=== PATIENT | male | born 1985 | race Caucasian/White ===

== ENCOUNTER 2020-07-02 14:30 | Emergency (ER) | payer OTHER ==
[2020-07-02 14:36] VITALS: TEMP 98.1
--- NOTE | 2020-07-02 15:11 | ED ---
General Adult HPI - General Chief complaint: Chest Pain Stated complaint: Chest pressure Time Seen by Provider: 07/02/20 14:58 Source: patient Mode of arrival: ambulatory - History of Present Illness Initial comments: Dictation was produced using [employer] dictation software. please excuse any grammatical, word or spelling errors. This patient was cared for during a federal and state declared state of emergency secondary to Covid 19 Chief Complaint: 34-year-old male presents with chest pain History of Present Illness: Is 4-year-old male past medical history of hypertension. He states that today he has been having chest pain for the last 48-72 hours. States that it's a discomfort, not exactly pain to his right substernal area. He notices that when he burps he has this sensation. Call his primary care physician recently and was told to take Pepcid make a follow-up appointment. He states that today he had another episode and took some Pepcid however his symptoms and go away. Denies any radiation to the shoulder joint or extremity. No associated diaphoresis. He does not feeling nausea as well. Patient denies any strong family history of cardiac disease. He does not use tobacco. He has remote history 10 years ago where he used to be a pack-a-day smoker. He exercises regularly and is very active. He denies any exacerbation of his symptoms with exertional activity. He has history of cholecystectomy. No fevers or cough. Patient's pain is nonpleuritic. The ROS documented in this emergency department record has been reviewed and c onfirmed by me. Those systems with pertinent positive or negative responses have been documented in the HPI. All other systems are other negative and/or noncontributory. PHYSICAL EXAM: General Impression: Alert and oriented x3, not in acute distress HEENT: Normocephalic atraumatic, extra-ocular movements intact, pupils equal and reactive to light bilaterally, mucous membranes moist. Cardiovascular: Heart regular rate and rhythm, no murmurs Chest: Able to complete full sentences, no retractions, no tachypnea, clear to auscultation bilaterally Abdomen: abdomen soft, non-tender, non-distended, no organomegaly Musculoskeletal: Pulses present and equal in all extremities, no peripheral edema Motor: no focal deficits noted Neurological: CN II-XII grossly intact, no focal motor or sensory deficits noted Skin: Intact with no visualized rashes Psych: Normal affect and mood ED course: 34-year-old male with atypical chest pain. Vital signs upon arrival are within acceptable limits. Laboratory evaluation obtained. CBC unremarkable. Metabolic panel is negative. Cardiac enzymes negative. Chest x-rays unremarkable. Disposition options were discussed with patient. He is recommended to him that we draw a second troponin to increase her confidence that patient is not under going in acute coronary process. Patient insisted one to be discharge and he will follow-up with his private care physician. This point it was recommended to patient to stop drinking beer, burr picker some antacid medications and to follow-up with his primary care physician. Return parameters were discussed. Patient was told to seek medical attention if she develops any chest pain. This point there are no identified high-risk features. He is told to follow-up with his PCP. Patient given aspirin. EKG interpretation: Ventricular rate 64, normal sinus rhythm,. Interval 174, QRS 92, QTC 408. No GA prolongation, no QTC prolongation,. Isolated T-wave inversion in lead 3. Possible 1 hyperacute T wave in V2 Overall, this EKG is nonspecific - Related Data Home Medications Medication Instructions Recorded Confirmed Omeprazole [PriLOSEC] 1 tab PO DAILY 02/21/16 06/14/16 lisinopriL [Zestril] 1 tab PO DAILY 02/21/16 06/14/16 Allergies Allergy/AdvReac Type Severity Reaction Status Date / Time No Known Allergies Allergy Verified 07/02/20 14:37 Review of Systems ROS Statement: Those systems with pertinent positive or pertinent negative responses have been documented in the HPI. ROS Other: All systems not noted in ROS Statement are negative. Past Medical History Past Medical History: Hypertension History of Any Multi-Drug Resistant Organisms: None Reported Past Surgical History: Cholecystectomy Additional Past Surgical History / Comment(s): Sinus Past Psychological History: No Psychological Hx Reported Smoking Status: Former smoker Past Alcohol Use History: Daily Past Drug Use History: None Reported Course Vital Signs 07/02/20 07/02/20 14:34 15:36 Temperature 98.1 F Pulse Rate 76 64 Respiratory 16 18 Rate Blood Pressure 137/86 128/89 O2 Sat by Pulse 99 99 Oximetry Medical Decision Making - Lab Data Result diagrams: 07/02/20 15:23 07/02/20 15:23 Lab Results 07/02/20 07/02/20 07/02/20 Range/Units 15:23 15:23 15:23 WBC 9.4 (3.8-10.6) k/uL RBC 5.25 (4.30-5.90) m/uL Hgb 16.2 (13.0-17.5) gm/dL Hct 48.2 (39.0-53.0) % MCV 91.9 (80.0-100.0) fL MCH 30.9 (25.0-35.0) pg MCHC 33.6 (31.0-37.0) g/dL RDW 12.4 (11.5-15.5) % Plt Count 159 (150-450) k/uL Neutrophils % 63 % Lymphocytes % 25 % Monocytes % 6 % Eosinophils % 3 % Basophils % 1 % Neutrophils # 6.0 (1.3-7.7) k/uL Lymphocytes # 2.3 (1.0-4.8) k/uL Monocytes # 0.5 (0-1.0) k/uL Eosinophils # 0.3 (0-0.7) k/uL Basophils # 0.1 (0-0.2) k/uL Sodium 139 (137-145) mmol/L Potassium 4.4 (3.5-5.1) mmol/L Chloride 105 (98-107) mmol/L Carbon Dioxide 24 (22-30) mmol/L Anion Gap 10 mmol/L BUN 19 (9-20) mg/dL Creatinine 0.93 (0.66-1.25) mg/dL Est GFR (CKD-EPI)AfAm >90 (>60 ml/min/1.73 sqM) Est GFR (CKD-EPI)NonAf >90 (>60 ml/min/1.73 sqM) Glucose 91 (74-99) mg/dL Calcium 9.9 (8.4-10.2) mg/dL Total Bilirubin 0.5 (0.2-1.3) mg/dL AST 33 (17-59) U/L ALT 23 (4-49) U/L Alkaline Phosphatase 71 (38-126) U/L Troponin I <0.012 (0.000-0.034) ng/mL Total Protein 7.6 (6.3-8.2) g/dL Albumin 4.8 (3.5-5.0) g/dL Lipase 83 (23-300) U/L Disposition Clinical Impression: Chest pain Disposition: HOME SELF-CARE Condition: Fair Instructions (If sedation given, give patient instructions): Chest Pain (ED) Is patient prescribed a controlled substance at d/c from ED?: No Referrals: Jac Mejía MD [Primary Care Provider] - 1-2 days Time of Disposition: 16:22
[2020-07-02 15:34] LABS: Basophils # (A) 0.1 k/uL (0-0.2); Basophils % (A) 1 %; Eosinophils # (A) 0.3 k/uL (0-0.7); Eosinophils % (A) 3 %; HCT 48.2 % (39.0-53.0); HGB 16.2 gm/dL (13.0-17.5); Lymphocytes # (A) 2.3 k/uL (1.0-4.8); Lymphocytes % (A) 25 %; MCH 30.9 pg (25.0-35.0); MCHC 33.6 g/dL (31.0-37.0); MCV 91.9 fL (80.0-100.0); Mean Platelet Volume 9.7; Monocytes # (A) 0.5 k/uL (0-1.0); Monocytes % (A) 6 %; Neutrophils % (A) 63 %; Platelet Count 159 k/uL (150-450); RBC 5.25 m/uL (4.30-5.90); RDW 12.4 % (11.5-15.5); WBC 9.4 k/uL (3.8-10.6)
[2020-07-02 15:42] LABS: ALT 23 U/L (4-49); AST 33 U/L (17-59); African American GFR (CKD) >90 (>60 ml/min/1.73 sqM); Albumin 4.8 g/dL (3.5-5.0); Alkaline Phosphatase 71 U/L (38-126); Anion Gap 10 mmol/L; Blood Urea Nitrogen 19 mg/dL (9-20); Calcium 9.9 mg/dL (8.4-10.2); Carbon Dioxide 24 mmol/L (22-30); Chloride 105 mmol/L (98-107); Glucose 91 mg/dL (74-99); Lipase 83 U/L (23-300); Non-African American GFR(CKD) >90 (>60 ml/min/1.73 sqM); Potassium 4.4 mmol/L (3.5-5.1); Sodium 139 mmol/L (137-145); Total Bilirubin 0.5 mg/dL (0.2-1.3); Total Protein 7.6 g/dL (6.3-8.2)
--- NOTE | 2020-07-02 15:44 | XR ---
EXAMINATION TYPE: XR chest 2V DATE OF EXAM: 07/02/2020 COMPARISON: NONE HISTORY: Chest pain and discomfort TECHNIQUE: Frontal and lateral views of the chest are obtained. FINDINGS: There is no focal air space opacity, pleural effusion, or pneumothorax seen. The cardiac silhouette size is within normal limits. The osseous structures are intact. IMPRESSION: No acute cardiopulmonary process.
[2020-07-02 16:04] VITALS: RESP 18
[2020-07-02] MEDS ORDERED: ASPIRIN 81 MG PO STA (16:21)
[2020-07-02 16:35] VITALS: BP 128/84; PULSE 75
== END 2020-07-02 16:40 | disposition home or self-care (01) ==
LOC: EC 14:30
DX: R07.89 Other chest pain (principal); I10 Essential (primary) hypertension; Z79.899 Other long term (current) drug therapy; Z90.49 Acquired absence of other specified parts of digestive tract; Z87.891 Personal history of nicotine dependence
CPT/HCPCS: 36415; 71046; 80053; 83690; 84484; 85025; 93005; 99285

== ENCOUNTER 2021-10-03 23:25 | Emergency (ER) | payer OTHER ==
[2021-10-03 23:37] VITALS: RESP 18; TEMP 98.3
[2021-10-03] MEDS ORDERED: SODIUM CHLORIDE 0.9% 1,000 ML IV STA (23:58)
[2021-10-03] MEDS ORDERED: ONDANSETRON 4 MG/2 ML VIAL IVP STA (23:58)
[2021-10-03] MEDS ORDERED: MORPHINE SULFATE 4 MG/ML SYRINGE IV STA (23:58)
--- NOTE | 2021-10-04 00:06 | ED ---
Abdominal Pain HPI - General Chief Complaint: Abdominal Pain Stated Complaint: Abdominal Pain Time Seen by Provider: 10/03/21 23:46 Source: patient Mode of arrival: ambulatory - History of Present Illness Initial Comments: 36 year-old male patient presents to the emergency department for evaluation of generalized abdominal pain. States the pain waxes and wanes over minutes. He has had many episodes of vomiting over the course of the day and last night. States that the pain started yesterday but was much more mild. He was evaluated at [facility] yesterday for significant scrotal swelling. States that he woke with swelling in the morning yesterday and was advised to go to the hospital. He did have labs, CT abdomen and pelvis, as well as scrotal ultrasound. He was ultimately diagnosed with scrotal hematoma and discharged home. His abdominal pain worsened today so he came in for evaluation. He has been unable to keep down any food or fluids. Denies any fever or chills. Denies any hematuria, dysuria, urinary frequency, urinary urgency. States he did have a bowel movement this morning. States he has not really been passing gas this evening. Has not taken any medication for his pain. He is a daily drinker. Denies any street drug use. Patient denies any recent rash, cough, shortness of breath, chest pain, back pain, numbness, tingling, dizziness, weakness, headache, visual changes, or any other complaints. - Related Data Home Medications Medication Instructions Recorded Confirmed lisinopriL [Zestril] 10 mg PO DAILY 02/21/16 07/02/20 Ascorbic Acid [Vitamin C] 500 mg PO DAILY 07/02/20 07/02/20 Cholecalciferol [Vitamin D3 (25 1,000 unit PO DAILY 07/02/20 07/02/20 Mcg = 1000 Iu)] Famotidine [Pepcid AC] 10 mg PO DAILY PRN 07/02/20 07/02/20 Previous Rx's Medication Instructions Recorded Dicyclomine [Bentyl] 20 mg PO QID #12 tablet 10/04/21 Omeprazole 20 mg PO DAILY #30 tab 10/04/21 Allergies Allergy/AdvReac Type Severity Reaction Status Date / Time soap AdvReac Rash/Hives Verified 10/03/21 23:37 Review of Systems ROS Statement: Those systems with pertinent positive or pertinent negative responses have been documented in the HPI. ROS Other: All systems not noted in ROS Statement are negative. Past Medical History Past Medical History: Hypertension History of Any Multi-Drug Resistant Organisms: None Reported Past Surgical History: Cholecystectomy Additional Past Surgical History / Comment(s): Sinus Past Psychological History: No Psychological Hx Reported Smoking Status: Former smoker Past Alcohol Use History: Daily Past Drug Use History: None Reported General Exam General appearance: alert, in no apparent distress, other (This is a well- developed, well-nourished adult male in no acute distress.) Eye exam: Present: normal appearance, PERRL, EOMI. Absent: scleral icterus, conjunctival injection, periorbital swelling ENT exam: Present: normal exam, normal oropharynx, mucous membranes moist Respiratory exam: Present: normal lung sounds bilaterally. Absent: respiratory distress, wheezes, rales, rhonchi, stridor Cardiovascular Exam: Present: regular rate, normal rhythm, normal heart sounds. Absent: systolic murmur, diastolic murmur, rubs, gallop, clicks GI/Abdominal exam: Present: soft, tenderness (Periumbilical), normal bowel sounds. Absent: distended, guarding, rebound, rigid Neurological exam: Present: alert, oriented X3, CN II-XII intact Psychiatric exam: Present: normal affect, normal mood Skin exam: Present: warm, dry, intact, normal color. Absent: rash Course Vital Signs 10/03/21 10/04/21 23:29 01:37 Temperature 98.3 F Pulse Rate 79 87 Respiratory 18 18 Rate Blood Pressure 138/86 118/74 O2 Sat by Pulse 97 97 Oximetry Medical Decision Making - Medical Decision Making 36-year-old male patient presented to the emergency department today for evalu ation of waxing waning abdominal pain with vomiting and diarrhea. Physical examination did reveal soft nontender abdomen. He is afebrile normal vital signs. Labs reviewed and did reveal elevated white blood cell count of 14 felt to be reactive from vomiting. Did review records from [facility] visit yesterday showed evidence for enteritis and duodenitis. I did discuss these findings with the patient. He'll be given Bentyl prescription. He is feeling better after receiving IV fluids and medication here in the ER. We discharged follow up with his primary care physician for recheck in 1-2 days. Return parameters were discussed in detail. He verbalizes understanding and agrees with this plan. My attending is Dr. Bustamante. - Lab Data Result diagrams: 10/04/21 00:12 10/04/21 00:12 Lab Results 10/04/21 10/04/21 10/04/21 Range/Units 00:12 00:12 00:12 WBC 14.0 H (3.8-10.6) k/uL RBC 5.46 (4.30-5.90) m/uL Hgb 17.0 (13.0-17.5) gm/dL Hct 51.7 (39.0-53.0) % MCV 94.8 (80.0-100.0) fL MCH 31.2 (25.0-35.0) pg MCHC 32.9 (31.0-37.0) g/dL RDW 12.6 (11.5-15.5) % Plt Count 161 (150-450) k/uL MPV 11.5 Neutrophils % 88 % Lymphocytes % 7 % Monocytes % 4 % Eosinophils % 1 % Basophils % 0 % Neutrophils # 12.3 H (1.3-7.7) k/uL Lymphocytes # 1.0 (1.0-4.8) k/uL Monocytes # 0.5 (0-1.0) k/uL Eosinophils # 0.1 (0-0.7) k/uL Basophils # 0.0 (0-0.2) k/uL Sodium 135 L (137-145) mmol/L Potassium 4.3 (3.5-5.1) mmol/L Chloride 103 (98-107) mmol/L Carbon Dioxide 19 L (22-30) mmol/L Anion Gap 13 mmol/L BUN 11 (9-20) mg/dL Creatinine 0.77 (0.66-1.25) mg/dL Est GFR (CKD-EPI)AfAm >90 (>60 ml/min/1.73 sqM) Est GFR (CKD-EPI)NonAf >90 (>60 ml/min/1.73 sqM) Glucose 134 H (74-99) mg/dL Plasma Lactic Acid Glenn 0.8 (0.7-2.0) mmol/L Calcium 9.8 (8.4-10.2) mg/dL Total Bilirubin 0.8 (0.2-1.3) mg/dL AST 36 (17-59) U/L ALT 48 (4-49) U/L Alkaline Phosphatase 71 (38-126) U/L Total Protein 6.8 (6.3-8.2) g/dL Albumin 4.3 (3.5-5.0) g/dL Lipase 39 (23-300) U/L Disposition Clinical Impression: Abdominal pain, Vomiting Disposition: HOME SELF-CARE Condition: Good Instructions (If sedation given, give patient instructions): Acute Nausea and Vomiting (ED), Acute Diarrhea (ED), Abdominal Pain (ED) Additional Instructions: Take medications as directed. Follow up with primary care physician for recheck in 1-2 days. Return for any new, worsening, or concerning symptoms. Prescriptions: Dicyclomine [Bentyl] 20 mg PO QID #12 tablet Omeprazole 20 mg PO DAILY #30 tab Is patient prescribed a controlled substance at d/c from ED?: No Referrals: Jac Mejía MD [Primary Care Provider] - 1-2 days Time of Disposition: 01:21
[2021-10-04 00:29] LABS: Basophils % (A) 0 %; Eosinophils # (A) 0.1 k/uL (0-0.7); Eosinophils % (A) 1 %; HCT 51.7 % (39.0-53.0); Lymphocytes % (A) 7 %; MCH 31.2 pg (25.0-35.0); MCHC 32.9 g/dL (31.0-37.0); MCV 94.8 fL (80.0-100.0); Mean Platelet Volume 11.5; Monocytes # (A) 0.5 k/uL (0-1.0); Monocytes % (A) 4 %; Neutrophils # (A) 12.3 k/uL (1.3-7.7); Neutrophils % (A) 88 %; Platelet Count 161 k/uL (150-450); RBC 5.46 m/uL (4.30-5.90); RDW 12.6 % (11.5-15.5)
[2021-10-04 00:37] LABS: ALT 48 U/L (4-49); AST 36 U/L (17-59); African American GFR (CKD) >90 (>60 ml/min/1.73 sqM); Albumin 4.3 g/dL (3.5-5.0); Alkaline Phosphatase 71 U/L (38-126); Anion Gap 13 mmol/L; Blood Urea Nitrogen 11 mg/dL (9-20); Calcium 9.8 mg/dL (8.4-10.2); Carbon Dioxide 19 mmol/L (22-30); Chloride 103 mmol/L (98-107); Glucose 134 mg/dL (74-99); Lipase 39 U/L (23-300); Non-African American GFR(CKD) >90 (>60 ml/min/1.73 sqM); Potassium 4.3 mmol/L (3.5-5.1); Sodium 135 mmol/L (137-145); Total Bilirubin 0.8 mg/dL (0.2-1.3); Total Protein 6.8 g/dL (6.3-8.2)
[2021-10-04] MEDS ORDERED: DICYCLOMINE 10 MG/ML 2 ML AMP IM STA (01:21)
[2021-10-04 01:38] VITALS: BP 118/74; PULSE 87
== END 2021-10-04 01:37 | disposition home or self-care (01) ==
LOC: EC 23:25
DX: R10.84 Generalized abdominal pain (principal); R11.10 Vomiting, unspecified; I10 Essential (primary) hypertension; Z90.49 Acquired absence of other specified parts of digestive tract; Z87.891 Personal history of nicotine dependence
CPT/HCPCS: 36415; 80053; 83605; 83690; 85025; 96361; 96372; 96374; 96375; 99284

== ENCOUNTER 2021-10-07 22:41 | Emergency (ER) | payer OTHER ==
[2021-10-07 22:46] VITALS: TEMP 97.5
[2021-10-07] MEDS ORDERED: diphenhydrAMINE 50 MG/ML 1 ML VIAL IVP STA (23:04)
[2021-10-07] MEDS ORDERED: FAMOTIDINE 20 MG/2 ML VIAL IV STA (23:04)
[2021-10-07] MEDS ORDERED: methylPREDNISolone SOD SUCCI 125 MG/2 ML VIAL IV STA (23:04)
--- NOTE | 2021-10-07 23:46 | ED ---
Allergic Reaction HPI - General Chief complaint: Allergic Reaction Stated complaint: Facial swelling Time Seen by Provider: 10/07/21 22:58 Source: patient Mode of arrival: ambulatory Limitations: no limitations - History of Present Illness MD Complaint: facial swelling Onset/Timin -: hour(s) Exposure: unknown Symptoms: lip swelling Severity: severe Treatment Prior to Arrival: none Previous Allergy History: none - Related Data Home Medications Medication Instructions Recorded Confirmed lisinopriL [Zestril] 10 mg PO DAILY 02/21/16 07/02/20 Ascorbic Acid [Vitamin C] 500 mg PO DAILY 07/02/20 07/02/20 Cholecalciferol [Vitamin D3 (25 1,000 unit PO DAILY 07/02/20 07/02/20 Mcg = 1000 Iu)] Famotidine [Pepcid AC] 10 mg PO DAILY PRN 07/02/20 07/02/20 Previous Rx's Medication Instructions Recorded Dicyclomine [Bentyl] 20 mg PO QID #12 tablet 10/04/21 Omeprazole 20 mg PO DAILY #30 tab 10/04/21 Allergies Allergy/AdvReac Type Severity Reaction Status Date / Time soap AdvReac Rash/Hives Verified 10/07/21 22:42 Review of Systems ROS Statement: Those systems with pertinent positive or pertinent negative responses have been documented in the HPI. ROS Other: All systems not noted in ROS Statement are negative. Constitutional: Denies: fever, chills Eyes: Denies: eye pain, eye discharge ENT: Denies: throat pain, congestion Respiratory: Denies: cough, dyspnea Cardiovascular: Denies: chest pain, palpitations, edema Gastrointestinal: Denies: abdominal pain, nausea, vomiting, diarrhea Skin: Denies: rash Neurological: Denies: headache, weakness Past Medical History Past Medical History: Hypertension History of Any Multi-Drug Resistant Organisms: None Reported Past Surgical History: Cholecystectomy Additional Past Surgical History / Comment(s): Sinus Past Psychological History: Anxiety Smoking Status: Former smoker Past Alcohol Use History: Daily Past Drug Use History: None Reported General Exam - General Exam Comments Initial Comments: This patient is a 37-year-old man with history of hypertension, taking lisinopril, who presents with approximately one hour of swelling of his lower lip. The patient denies trauma or any history of previous ALLERGY/angioedema. He is denying any difficulty in breathing or swallowing. No tongue or neck swelling. Limitations: no limitations General appearance: alert, in no apparent distress Head exam: Present: atraumatic, normocephalic Eye exam: Present: normal appearance. Absent: scleral icterus, conjunctival injection ENT exam: Present: other (Is moderately severe angioedema involving the bilateral lower lip) Neck exam: Present: normal inspection, full ROM. Absent: tenderness, meningismus, lymphadenopathy Respiratory exam: Present: normal lung sounds bilaterally. Absent: respiratory distress, wheezes, rales, rhonchi, stridor Cardiovascular Exam: Present: regular rate, normal rhythm, normal heart sounds. Absent: systolic murmur, diastolic murmur, rubs, gallop GI/Abdominal exam: Present: soft. Absent: distended, tenderness, guarding, rebound, rigid, mass Extremities exam: Present: normal inspection, normal capillary refill. Absent: pedal edema, calf tenderness Neurological exam: Present: alert Skin exam: Present: warm, dry, intact, normal color. Absent: rash Course Vital Signs 10/07/21 22:42 Temperature 97.5 F L Pulse Rate 77 Respiratory 20 Rate Blood Pressure 132/92 O2 Sat by Pulse 97 Oximetry Disposition Clinical Impression: Angioedema Disposition: HOME SELF-CARE Condition: Good Instructions (If sedation given, give patient instructions): Angioedema (ED) Is patient prescribed a controlled substance at d/c from ED?: No Referrals: Jac Mejía MD [Primary Care Provider] - 1-2 days
[2021-10-08 00:53] VITALS: BP 125/76; PULSE 78; RESP 16
== END 2021-10-08 00:52 | disposition home or self-care (01) ==
LOC: EC 22:41
DX: T78.3XXA Angioneurotic edema, initial encounter (principal); I10 Essential (primary) hypertension; F41.9 Anxiety disorder, unspecified; Z90.49 Acquired absence of other specified parts of digestive tract; Z87.891 Personal history of nicotine dependence
CPT/HCPCS: 99283; 96374; 96375 ×2; J1200; J2930

== ENCOUNTER 2021-10-13 00:18 | Emergency (ER) | payer OTHER ==
[2021-10-13 00:24] VITALS: TEMP 98.1
[2021-10-13] MEDS ORDERED: methylPREDNISolone SOD SUCCI 125 MG/2 ML VIAL IV STA (00:53)
[2021-10-13] MEDS ORDERED: FAMOTIDINE 20 MG/2 ML VIAL IV STA (00:53)
[2021-10-13] MEDS ORDERED: diphenhydrAMINE 50 MG/ML 1 ML VIAL IVP STA (00:53)
[2021-10-13 01:07] LABS: Basophils % (A) 0 %; Eosinophils # (A) 0.4 k/uL (0-0.7); Eosinophils % (A) 4 %; HCT 46.2 % (39.0-53.0); HGB 15.4 gm/dL (13.0-17.5); Lymphocytes # (A) 2.2 k/uL (1.0-4.8); Lymphocytes % (A) 22 %; MCH 31.2 pg (25.0-35.0); MCHC 33.3 g/dL (31.0-37.0); MCV 93.8 fL (80.0-100.0); Mean Platelet Volume 10.3; Monocytes # (A) 0.4 k/uL (0-1.0); Monocytes % (A) 4 %; Neutrophils # (A) 6.7 k/uL (1.3-7.7); Neutrophils % (A) 69 %; Platelet Count 165 k/uL (150-450); RBC 4.92 m/uL (4.30-5.90); RDW 12.4 % (11.5-15.5); WBC 9.7 k/uL (3.8-10.6)
[2021-10-13 01:20] LABS: ALT 25 U/L (4-49); AST 29 U/L (17-59); African American GFR (CKD) >90 (>60 ml/min/1.73 sqM); Albumin 4.1 g/dL (3.5-5.0); Alkaline Phosphatase 66 U/L (38-126); Anion Gap 9 mmol/L; Blood Urea Nitrogen 10 mg/dL (9-20); Calcium 9.7 mg/dL (8.4-10.2); Carbon Dioxide 24 mmol/L (22-30); Chloride 102 mmol/L (98-107); Glucose 93 mg/dL (74-99); Non-African American GFR(CKD) >90 (>60 ml/min/1.73 sqM); Sodium 135 mmol/L (137-145); Total Bilirubin 0.8 mg/dL (0.2-1.3); Total Protein 6.5 g/dL (6.3-8.2)
--- NOTE | 2021-10-13 02:09 | ED ---
Allergic Reaction HPI - General Chief complaint: Allergic Reaction Stated complaint: Eye Problems Time Seen by Provider: 10/13/21 00:21 Source: patient Mode of arrival: ambulatory Limitations: no limitations - History of Present Illness MD Complaint: facial swelling -: hour(s) Exposure: unknown Symptoms: rash, facial swelling Severity: moderate Treatment Prior to Arrival: none Previous Allergy History: prior ED visit(s), angioedema - Related Data Home Medications Medication Instructions Recorded Confirmed lisinopriL [Zestril] 10 mg PO DAILY 02/21/16 07/02/20 Ascorbic Acid [Vitamin C] 500 mg PO DAILY 07/02/20 07/02/20 Cholecalciferol [Vitamin D3 (25 1,000 unit PO DAILY 07/02/20 07/02/20 Mcg = 1000 Iu)] Famotidine [Pepcid AC] 10 mg PO DAILY PRN 07/02/20 07/02/20 Previous Rx's Medication Instructions Recorded Dicyclomine [Bentyl] 20 mg PO QID #12 tablet 10/04/21 Omeprazole 20 mg PO DAILY #30 tab 10/04/21 Allergies Allergy/AdvReac Type Severity Reaction Status Date / Time soap AdvReac Rash/Hives Verified 10/13/21 00:23 Review of Systems ROS Statement: Those systems with pertinent positive or pertinent negative responses have been documented in the HPI. ROS Other: All systems not noted in ROS Statement are negative. Constitutional: Denies: fever, chills Eyes: Denies: eye pain, vision change ENT: Denies: throat pain, congestion Respiratory: Denies: cough, dyspnea, wheezes, stridor Cardiovascular: Denies: chest pain, palpitations, edema, syncope Gastrointestinal: Denies: abdominal pain, nausea, vomiting, diarrhea Skin: Reports: rash Neurological: Denies: headache Past Medical History Past Medical History: Hypertension History of Any Multi-Drug Resistant Organisms: None Reported Past Surgical History: Cholecystectomy Additional Past Surgical History / Comment(s): Sinus Past Psychological History: Anxiety Smoking Status: Former smoker Past Alcohol Use History: Daily Past Drug Use History: None Reported General Exam Limitations: no limitations General appearance: alert, in no apparent distress Head exam: Present: atraumatic, normocephalic Eye exam: Present: PERRL, EOMI, periorbital swelling. Absent: scleral icterus, conjunctival injection, nystagmus ENT exam: Present: normal oropharynx, mucous membranes moist Neck exam: Present: normal inspection Respiratory exam: Present: normal lung sounds bilaterally. Absent: respiratory distress, wheezes, rales, rhonchi, stridor Cardiovascular Exam: Present: regular rate, normal rhythm, normal heart sounds. Absent: systolic murmur, diastolic murmur, rubs, gallop GI/Abdominal exam: Present: soft. Absent: distended, tenderness, guarding, rebound, rigid, mass Back exam: Present: normal inspection Neurological exam: Present: alert Skin exam: Present: warm, dry, intact, other (Patient has a small number of flesh colored papular lesions with small amount of scaling that are suggestive of pityriasis, however there does not appear to be a herald patch. These are scattered but mainly on the right upper extremity and the trunk.) Course Vital Signs 10/13/21 10/13/21 00:21 00:30 Temperature 98.1 F Pulse Rate 80 Respiratory 18 16 Rate Blood Pressure 150/94 O2 Sat by Pulse 97 Oximetry Medical Decision Making - Lab Data Result diagrams: 10/13/21 00:37 10/13/21 00:37 Lab Results 10/13/21 10/13/21 Range/Units 00:37 00:37 WBC 9.7 (3.8-10.6) k/uL RBC 4.92 (4.30-5.90) m/uL Hgb 15.4 (13.0-17.5) gm/dL Hct 46.2 (39.0-53.0) % MCV 93.8 (80.0-100.0) fL MCH 31.2 (25.0-35.0) pg MCHC 33.3 (31.0-37.0) g/dL RDW 12.4 (11.5-15.5) % Plt Count 165 (150-450) k/uL MPV 10.3 Neutrophils % 69 % Lymphocytes % 22 % Monocytes % 4 % Eosinophils % 4 % Basophils % 0 % Neutrophils # 6.7 (1.3-7.7) k/uL Lymphocytes # 2.2 (1.0-4.8) k/uL Monocytes # 0.4 (0-1.0) k/uL Eosinophils # 0.4 (0-0.7) k/uL Basophils # 0.0 (0-0.2) k/uL Manual Slide Review Performed Sodium 135 L (137-145) mmol/L Potassium 4.0 (3.5-5.1) mmol/L Chloride 102 (98-107) mmol/L Carbon Dioxide 24 (22-30) mmol/L Anion Gap 9 mmol/L BUN 10 (9-20) mg/dL Creatinine 0.74 (0.66-1.25) mg/dL Est GFR (CKD-EPI)AfAm >90 (>60 ml/min/1.73 sqM) Est GFR (CKD-EPI)NonAf >90 (>60 ml/min/1.73 sqM) Glucose 93 (74-99) mg/dL Calcium 9.7 (8.4-10.2) mg/dL Total Bilirubin 0.8 (0.2-1.3) mg/dL AST 29 (17-59) U/L ALT 25 (4-49) U/L Alkaline Phosphatase 66 (38-126) U/L Total Protein 6.5 (6.3-8.2) g/dL Albumin 4.1 (3.5-5.0) g/dL Disposition Clinical Impression: Angioedema Disposition: HOME SELF-CARE Condition: Good Instructions (If sedation given, give patient instructions): Angioedema (ED) Is patient prescribed a controlled substance at d/c from ED?: No Referrals: Jac Mejía MD [Primary Care Provider] - 1-2 days Yonatan Ren MD [STAFF PHYSICIAN] - 1-2 days Kevin Sood MD [STAFF PHYSICIAN] - 1-2 days
[2021-10-13 02:36] VITALS: BP 126/80; PULSE 74; RESP 19
== END 2021-10-13 02:31 | disposition home or self-care (01) ==
LOC: EC 00:18
DX: T78.3XXA Angioneurotic edema, initial encounter (principal); I10 Essential (primary) hypertension; F41.9 Anxiety disorder, unspecified; Z90.49 Acquired absence of other specified parts of digestive tract; Z87.891 Personal history of nicotine dependence; Z20.822 Contact with and (suspected) exposure to COVID-19
CPT/HCPCS: 99283; 96374; 96375 ×2; 36415; 86160 ×2; 80053; 85025; 87635; J1200; J2930

== ENCOUNTER 2021-10-29 09:16 | Observation (INO) | payer OTHER ==
[2021-10-29] MEDS ORDERED: FAMOTIDINE 20 MG/2 ML VIAL IV STA (09:18)
[2021-10-29] MEDS ORDERED: methylPREDNISolone SOD SUCCI 125 MG/2 ML VIAL IV STA (09:18)
--- NOTE | 2021-10-29 09:36 | ED ---
Allergic Reaction HPI - General Chief complaint: Allergic Reaction Stated complaint: Allergic reaction Source: patient Mode of arrival: ambulatory Limitations: no limitations - History of Present Illness Initial Comments: 36-year-old male hypertension who presents emergency Department with oral swelling. Patient has been seen 3 times in her emergency room for similar complaint. He was on lisinopril up until 24 days ago. He presented with facial swelling 3 times and was diagnosed with angioedema. He was discharged home with a prescription for an EpiPen. He also has prednisone at home that he can take at his discretion when needed. He has had facial swelling for the past 4 days. States that today he was on his way to work when he felt a tickle in the back of his throat felt as if his airway was being cut off. He did use his EpiPen. He called EMS who gave him 50 mg of IV Benadryl. Patient was switched to Norvasc when he was taken off of his lisinopril. He denies shortness of breath or wheezing. No vomiting. He denies any additional new exposures. Does have an appointment to follow-up with Dr. Wilkins however his appointments are not for several weeks. No other alleviating, precipitating or modifying factors - Related Data Home Medications Medication Instructions Recorded Confirmed Ascorbic Acid [Vitamin C] 500 mg PO DAILY 07/02/20 10/29/21 Dicyclomine [Bentyl] 10 mg PO QID PRN 10/29/21 10/29/21 EPINEPHrine (Auto Inject) [Epipen] 0.3 mg IM ONCE PRN 10/29/21 10/29/21 Omeprazole 20 mg PO BID 10/29/21 10/29/21 amLODIPine [Norvasc] 2.5 mg PO DAILY 10/29/21 10/29/21 predniSONE 30 mg PO ONCE PRN 10/29/21 10/29/21 Previous Rx's Medication Instructions Recorded predniSONE [Deltasone] 40 mg PO DAILY #15 tab 10/30/21 Allergies Allergy/AdvReac Type Severity Reaction Status Date / Time VINCENT Inhibitors AdvReac Anaphylaxis Verified 10/29/21 10:13 soap AdvReac Rash/Hives Verified 10/29/21 10:13 Review of Systems ROS Statement: Those systems with pertinent positive or pertinent negative responses have been documented in the HPI. ROS Other: All systems not noted in ROS Statement are negative. Past Medical History Past Medical History: Hypertension History of Any Multi-Drug Resistant Organisms: None Reported Past Surgical History: Cholecystectomy Additional Past Surgical History / Comment(s): Sinus Past Psychological History: Anxiety Smoking Status: Former smoker Past Alcohol Use History: Daily Past Drug Use History: None Reported - Past Family History Father Family Medical History: Hypertension Additional Family Medical History / Comment(s): PROSTATE CA Mother Family Medical History: No Reported History General Exam Limitations: no limitations General appearance: alert, anxious Head exam: Present: atraumatic, normocephalic, normal inspection Eye exam: Present: normal appearance, PERRL, EOMI. Absent: scleral icterus, conjunctival injection, periorbital swelling ENT exam: Present: mucous membranes moist, TM's normal bilaterally, other (no lip swelling. Floor of mouth soft. Tongue normal size. Swelling to soft palate, tonsillar pillars, tonsils and uvula. No drooling, trismus, hoarseness or stridor) Neck exam: Present: normal inspection. Absent: tenderness, meningismus, lymphadenopathy Respiratory exam: Present: normal lung sounds bilaterally. Absent: respiratory distress, wheezes, rales, rhonchi, stridor Cardiovascular Exam: Present: regular rate, normal rhythm, normal heart sounds. Absent: systolic murmur, diastolic murmur, rubs, gallop, clicks GI/Abdominal exam: Present: soft, normal bowel sounds. Absent: distended, tenderness, guarding, rebound, rigid Extremities exam: Present: normal inspection, full ROM, normal capillary refill. Absent: tenderness, pedal edema, joint swelling, calf tenderness Back exam: Present: normal inspection Neurological exam: Present: alert, oriented X3, CN II-XII intact Psychiatric exam: Present: normal affect, normal mood Skin exam: Present: warm, dry, intact, normal color. Absent: rash Course Vital Signs 10/29/21 10/29/21 10/29/21 09:17 10:11 15:00 Temperature 98.4 F 98.4 F Pulse Rate 77 76 Pulse Rate [ 87 Right Pulse Oximetery] Respiratory 20 18 16 Rate Blood Pressure 129/73 132/75 Blood Pressure 126/76 [Right Arm] O2 Sat by Pulse 98 98 95 Oximetry Medical Decision Making - Medical Decision Making Upon arrival patient is placed into room 1. A thorough history and physical exam was performed. IV had infiltrated and therefore we did reestablish an IV. He is given 125 of Solu-Medrol and 20 mg of Pepcid. Evaluation demonstrates the patient does have posterior pharyngeal swelling of his tonsillar pillars and uvula. Lab studies are conducted. Patient did have a C1 esterase and C4 test completed upon one of his visits. Laboratory studies were unremarkable. Patient is reevaluated after 2 hours. Patient does have improvement in his swelling however still present. As the patient has been hospitalized several times I did recommend admission for ENT consult for which the patient did agree to. Dr. Molina who agreed to admit the patient. Patient will be placed on Benadryl and steroids every [address] Soler. Patient remained in stable condition awaiting a bed - Lab Data Result diagrams: 10/30/21 06:19 10/30/21 06:19 Lab Results 10/29/21 10/29/21 Range/Units 09:31 09:31 WBC 9.2 (3.8-10.6) k/uL RBC 4.97 (4.30-5.90) m/uL Hgb 15.7 (13.0-17.5) gm/dL Hct 46.9 (39.0-53.0) % MCV 94.3 (80.0-100.0) fL MCH 31.5 (25.0-35.0) pg MCHC 33.4 (31.0-37.0) g/dL RDW 12.1 (11.5-15.5) % Plt Count 128 L (150-450) k/uL MPV 10.3 Neutrophils % 65 % Lymphocytes % 23 % Monocytes % 6 % Eosinophils % 5 % Basophils % 0 % Neutrophils # 6.0 (1.3-7.7) k/uL Lymphocytes # 2.1 (1.0-4.8) k/uL Monocytes # 0.6 (0-1.0) k/uL Eosinophils # 0.5 (0-0.7) k/uL Basophils # 0.0 (0-0.2) k/uL Sodium 135 L (137-145) mmol/L Potassium 3.6 (3.5-5.1) mmol/L Chloride 103 (98-107) mmol/L Carbon Dioxide 23 (22-30) mmol/L Anion Gap 9 mmol/L BUN 14 (9-20) mg/dL Creatinine 0.76 (0.66-1.25) mg/dL Est GFR (CKD-EPI)AfAm >90 (>60 ml/min/1.73 sqM) Est GFR (CKD-EPI)NonAf >90 (>60 ml/min/1.73 sqM) Glucose 121 H (74-99) mg/dL Calcium 9.2 (8.4-10.2) mg/dL Total Bilirubin 1.0 (0.2-1.3) mg/dL AST 28 (17-59) U/L ALT 35 (4-49) U/L Alkaline Phosphatase 67 (38-126) U/L Total Protein 6.7 (6.3-8.2) g/dL Albumin 4.2 (3.5-5.0) g/dL - EKG Data EKG Comments: EKG demonstrates sinus rhythm with a rate of 68. [place] 160. QRS 121. QTC of 425. Peaked T waves in V2 and V3. J-point elevation [address] No acute [address] segment elevations or depressions Disposition Clinical Impression: Angioedema Disposition: ADMITTED IP TO THIS [facility] Condition: Stable Is patient prescribed a controlled substance at d/c from ED?: No Decision to Admit Reason: Admit from EC Decision Date: 10/29/21 Decision Time: 11:46
[2021-10-29] MEDS ORDERED: TRANEXAMIC ACID 1,000 MG in SODIUM CHLORIDE 0.9% 100 ML IVPB ONE (09:45)
[2021-10-29 09:52] LABS: Basophils % (A) 0 %; Eosinophils # (A) 0.5 k/uL (0-0.7); Eosinophils % (A) 5 %; HCT 46.9 % (39.0-53.0); HGB 15.7 gm/dL (13.0-17.5); Lymphocytes # (A) 2.1 k/uL (1.0-4.8); Lymphocytes % (A) 23 %; MCH 31.5 pg (25.0-35.0); MCHC 33.4 g/dL (31.0-37.0); MCV 94.3 fL (80.0-100.0); Mean Platelet Volume 10.3; Monocytes # (A) 0.6 k/uL (0-1.0); Monocytes % (A) 6 %; Neutrophils % (A) 65 %; Platelet Count 128 k/uL (150-450); RBC 4.97 m/uL (4.30-5.90); RDW 12.1 % (11.5-15.5); WBC 9.2 k/uL (3.8-10.6)
[2021-10-29 10:08] LABS: ALT 35 U/L (4-49); AST 28 U/L (17-59); African American GFR (CKD) >90 (>60 ml/min/1.73 sqM); Albumin 4.2 g/dL (3.5-5.0); Alkaline Phosphatase 67 U/L (38-126); Anion Gap 9 mmol/L; Blood Urea Nitrogen 14 mg/dL (9-20); Calcium 9.2 mg/dL (8.4-10.2); Carbon Dioxide 23 mmol/L (22-30); Chloride 103 mmol/L (98-107); Glucose 121 mg/dL (74-99); Non-African American GFR(CKD) >90 (>60 ml/min/1.73 sqM); Potassium 3.6 mmol/L (3.5-5.1); Sodium 135 mmol/L (137-145); Total Protein 6.7 g/dL (6.3-8.2)
[2021-10-29] MEDS ORDERED: NALOXONE 0.4 MG/ML 1 ML VIAL IV PRN (11:47)
[2021-10-29] MEDS ORDERED: diphenhydrAMINE 50 MG/ML 1 ML VIAL IVP SCH (12:00)
[2021-10-29] MEDS: SODIUM CHLORIDE 0.9% 1,000 ML IV SCH ×2 (12:39→22:37)
[2021-10-29] MEDS ORDERED: methylPREDNISolone SOD SUCCI 40 MG/ML 1 ML VIAL IV SCH (16:00)
[2021-10-29] MEDS ORDERED: hydrALAZINE HCL 20 MG/ML 1 ML VIAL IVP PRN (16:50)
[2021-10-29] MEDS: diphenhydrAMINE 50 MG/ML 1 ML VIAL IVP SCH (22:36)
[2021-10-29] MEDS: methylPREDNISolone SOD SUCCI 125 MG/2 ML VIAL IV SCH (22:36)
[2021-10-29] MEDS: FAMOTIDINE 20 MG/2 ML VIAL IV SCH (22:37)
[2021-10-29] MEDS: PANTOPRAZOLE 40 MG TABLET PO SCH (22:37)
[2021-10-30] MEDS: diphenhydrAMINE 50 MG/ML 1 ML VIAL IVP SCH ×3 (01:06→12:50)
[2021-10-30] MEDS: methylPREDNISolone SOD SUCCI 125 MG/2 ML VIAL IV SCH ×3 (01:06→12:49)
[2021-10-30] MEDS: SODIUM CHLORIDE 0.9% 1,000 ML IV SCH ×2 (06:05→15:23)
[2021-10-30] MEDS: FAMOTIDINE 20 MG/2 ML VIAL IV SCH (08:51)
[2021-10-30] MEDS: PANTOPRAZOLE 40 MG TABLET PO SCH (08:51)
[2021-10-30 08:54] LABS: Basophils # (A) 0.01 X 10*3/uL (0.00-0.10); Basophils % (A) 0.1 %; Eosinophils # (A) 0 X 10*3/uL (0.04-0.35); Eosinophils % (A) 0 %; HCT 47.2 % (39.6-50.0); HGB 15.2 g/dL (13.0-17.0); Immature Grans, Automated 0.4 %; Lymphocytes % (A) 8.4 %; MCHC 32.2 g/dL (32.0-37.0); MCV 93.1 fL (80.0-97.0); Mean Platelet Volume 12.8 fL (9.5-12.2); Monocytes # (A) 0.27 X 10*3/uL (0.20-1.00); Monocytes % (A) 2.8 %; NRBC Per 100 WBC 0 /100 WBCS (0.0-0.0); Neutrophils # (A) 8.45 X 10*3/uL (1.80-7.70); Neutrophils % (A) 88.3 %; Platelet Count 153 X 10*3/uL (140-440); RBC 5.07 X 10*6/uL (4.40-5.60); RDW 12.1 % (11.5-14.5); WBC 9.57 X 10*3/uL (4.50-10.00)
[2021-10-30 09:00] LABS: African American GFR (CKD) 131.3 (60.0-200.0); BUN/Creat Ratio 11.38 Ratio (12.00-20.00); Blood Urea Nitrogen 9.1 mg/dL (9.0-27.0); Calcium 9.1 mg/dL (8.7-10.3); Non-African American GFR(CKD) 113.3 (60.0-200.0); Potassium 4.4 mmol/L (3.5-5.5)
[2021-10-30] MEDS ORDERED: ASCORBIC ACID 500 MG TAB PO SCH (09:00)
[2021-10-30] MEDS ORDERED: amLODIPine 2.5 MG TAB PO SCH (09:00)
[2021-10-30 09:09] VITALS: BP 125/69; PULSE 92; RESP 15; TEMP 98.5
--- NOTE | 2021-10-30 14:02 | P.HPIM ---
History of Present Illness H&P Date: 10/30/21 Chief Complaint: ALLERGIC reaction, throat swelling This will provide both an H&P and discharge summary This is a 36-year-old gentleman, patient of . Underlying history of GERD, hypertension, who was seen in the emergency room several times in October starting 10/07/2021, for which presented with angioedema-like symptoms and had left lip swelling at that time as well as face swelling.. It was thought that this might be related to lisinopril, and was thereafter discontinued. He was discharged to home, with oral prednisone, and was given IV Solu-Medrol, there w as no tongue swelling, difficulty of breathing and difficulty of swallowing at that time. Thereafter he had another flareup, October 13, October 16, all with the following ALLERGIC reaction, lip swelling, eye problems, and facial swelling. She also had abdominal pain at that time, and no triggering factors were identified. She is scheduled to see Dr. Wilkins, secondary to recurrent episodes, his last visit with his PCP, only involves one day or 2 days worth of prednisone, for flareups. Flareups only lasts usually 1 day, during prednisone burst. He is scheduled to see general surgery, for EGD, and Dr. Wilkins, for ALLERGY He emergency room, with oral swelling, and uvular swelling, EMS gave him 50 mg of IV Benadryl, patient has EpiPen at that time, he felt a tickle in the back of his throat, and he started as if his upper airways being cut off, he did not lose his voice, at this time he is going to be admitted, with ENT follow-up and while in the hospital. When patient was seen, he has no airway problems, no swallowing difficulties, voice is normal, no tongue swelling, no lip swelling, symptoms have improved significantly, and is currently receiving IV Solu-Medrol, he reports that he normally has beer, grapes, cheese, and has been off eggs, within that timeframe. he is not aware of any gluten ALLERGY however is not tested, but his diet consists mainly ofpasta he has a dog and cattle, No Birds, and Denies Any Exposure to Chemicals, at Work or at Home. We're waiting ENT to see him during this admission, and once cleared, we will be discharging him with oral pre dnisone, with 50 mg tapering dose, over the next 10 days. Patient is also counseled, on abstaining for 3 main food groups gluten, eggs, fermented dairy products, we will not completely get him off dairy at this time, also to abstain from moldy fruits, and yeasted products Assessment and plan 1. Recurrent angioedema, etiology is not identified, could be related to her pr otracted clearance of lisinopril, which she discontinued 10/07/2021. Patient is on Solu-Medrol 60 mg every 6, and IV Benadryl and will be discharged later today once cleared by ENT has when necessary EpiPen, avoid nuts, gluten shellfish opiates among other things till seen by allergy doctor. will not resume any vincent imhibitors 2. Hypertension, off lisinopril, currently on amlodipine, 2.5 mg daily 3. GERD 3. Episodic abdominal pain, possibly related to triggering food sensitivities, workup as an outpatient 4. GI prophylaxis and DVT prophylaxis, the tonics and early ambulation Discharge planning, home once cleared by ENT Review of Systems Constitutional: Reports as per HPI, Denies anorexia, Denies chills, Denies chronic headaches, Denies chronic pain, Denies daytime sleepiness, Denies fatigue, Denies fever, Denies lethargy, Denies malaise, Denies night sweats, Denies poor appetite, Denies sweats, Denies weakness, Denies weight gain, Denies weight loss Cardiovascular: Reports as per HPI, Reports chest pain Respiratory: Reports as per HPI, Denies congestion, Denies cough, Denies dyspnea, Denies excessive sputum, Denies home oxygen, Denies pain, Denies pain on inspiration, Denies pleurisy, Denies wheezing Gastrointestinal: Denies as per HPI Genitourinary: Reports as per HPI Musculoskeletal: Reports as per HPI Integumentary: Reports as per HPI, Denies depigmentation, Denies pruritus, Denies rash Neurological: Reports as per HPI Psychiatric: Reports as per HPI, Denies anhedonia, Denies anxiety, Denies anxiety attacks, Denies change in appetite, Denies change in libido, Denies change in sleep habits, Denies confusion, Denies depression, Denies difficulty concentrating, Denies disorientation, Denies hallucinations, Denies hopeles sness, Denies hypersomnia, Denies insomnia, Denies irritability, Denies memory loss, Denies mood swings, Denies paranoia, Denies sadness/tearfulness, Denies sleep disturbances, Denies suicidal ideation Endocrine: Reports as per HPI Hematologic/Lymphatic: Reports as per HPI Allergic/Immunologic: Reports as per HPI Past Medical History Past Medical History: Hypertension History of Any Multi-Drug Resistant Organisms: None Reported Past Surgical History: Cholecystectomy Additional Past Surgical History / Comment(s): Sinus Past Anesthesia/Blood Transfusion Reactions: No Reported Reaction Past Psychological History: Anxiety Smoking Status: Former smoker Past Alcohol Use History: Daily Past Drug Use History: None Reported - Past Family History Father Family Medical History: Hypertension Additional Family Medical History / Comment(s): PROSTATE CA Mother Family Medical History: No Reported History Medications and Allergies Home Medications Medication Instructions Recorded Confirmed Type Ascorbic Acid [Vitamin C] 500 mg PO DAILY 07/02/20 10/29/21 History Dicyclomine [Bentyl] 10 mg PO QID PRN 10/29/21 10/29/21 History EPINEPHrine (Auto Inject) [Epipen] 0.3 mg IM ONCE PRN 10/29/21 10/29/21 History Omeprazole 20 mg PO BID 10/29/21 10/29/21 History amLODIPine [Norvasc] 2.5 mg PO DAILY 10/29/21 10/29/21 History predniSONE 30 mg PO ONCE PRN 10/29/21 10/29/21 History predniSONE [Deltasone] 40 mg PO DAILY #15 tab 10/30/21 Rx Allergies Allergy/AdvReac Type Severity Reaction Status Date / Time VINCENT Inhibitors AdvReac Anaphylaxis Verified 10/29/21 10:13 soap AdvReac Rash/Hives Verified 10/29/21 10:13 Physical Exam Vitals: Vital Signs Temp Pulse Resp BP Pulse Ox 10/30/21 08:00 92 15 10/30/21 07:20 98.5 F 92 15 125/69 96 10/30/21 02:35 97.8 F 76 17 118/69 98 10/30/21 02:00 81 18 10/29/21 20:15 97.8 F 81 18 121/77 93 L 10/29/21 20:00 81 18 10/29/21 15:00 98.4 F 87 16 126/76 95 Intake and Output 10/29/21 10/30/21 10/30/21 22:59 06:59 14:59 Intake Total 200 Balance 200 Intake: Oral 200 Other: Voiding Method Toilet Toilet # Voids 1 1 Weight 99.79 kg - Constitutional General appearance: cooperative, no acute distress - EENT Eyes: EOMI, dentition normal, normal appearance - Neck Neck: normal ROM - Respiratory Respiratory: bilateral: CTA, negative: diminished, dullness, rales - Cardiovascular Rhythm: regular Heart sounds: normal: S1, S2 Abnormal Heart Sounds: no systolic murmur, no diastolic murmur, no rub, no S3 Gallop, no S4 Gallop, no click, no other - Gastrointestinal General gastrointestinal: normal bowel sounds, soft - Integumentary Integumentary: normal, normal turgor - Neurologic Neurologic: CNII-XII intact - Musculoskeletal Musculoskeletal: gait normal, strength equal bilaterally - Psychiatric Psychiatric: A&O x's 3, appropriate affect, intact judgment & insight Results CBC & Chem 7: 10/30/21 06:19 10/30/21 06:19 Labs: Abnormal Lab Results - Last 24 Hours (Table) 10/30/21 10/30/21 Range/Units 06:19 06:19 MPV 12.8 H (9.5-12.2) fL Neutrophils # 8.45 H (1.80-7.70) X 10*3/uL Lymphocytes # 0.80 L (0.90-5.00) X 10*3/uL Eosinophils # 0 L (0.04-0.35) X 10*3/uL BUN/Creatinine Ratio 11.38 L (12.00-20.00) Ratio Glucose 136 H (70-110) mg/dL Laboratory Results WBC 9.57 X 10*3/uL (4.50-10.00) 10/30/21 06:19 RBC 5.07 X 10*6/uL (4.40-5.60) 10/30/21 06:19 Hgb 15.2 g/dL (13.0-17.0) 10/30/21 06:19 Hct 47.2 % (39.6-50.0) 10/30/21 06:19 MCV 93.1 fL (80.0-97.0) 10/30/21 06:19 MCH 30.0 pg (27.0-32.0) 10/30/21 06:19 MCHC 32.2 g/dL (32.0-37.0) 10/30/21 06:19 RDW 12.1 % (11.5-14.5) 10/30/21 06:19 Plt Count 153 X 10*3/uL (140-440) 10/30/21 06:19 MPV 12.8 fL (9.5-12.2) H 10/30/21 06:19 Immature Gran % (Auto) 0.4 % 10/30/21 06:19 Absolute Nucleated RBC 0 X 10*3/uL (0.00-0.00) 10/30/21 06:19 Neutrophils % 88.3 % 10/30/21 06:19 Lymphocytes % 8.4 % 10/30/21 06:19 Monocytes % 2.8 % 10/30/21 06:19 Eosinophils % 0 % 10/30/21 06:19 Basophils % 0.1 % 10/30/21 06:19 Immature Gran # 0.04 X 10*3/uL (0.00-0.04) 10/30/21 06:19 Neutrophils # 8.45 X 10*3/uL (1.80-7.70) H 10/30/21 06:19 Lymphocytes # 0.80 X 10*3/uL (0.90-5.00) L 10/30/21 06:19 Monocytes # 0.27 X 10*3/uL (0.20-1.00) 10/30/21 06:19 Eosinophils # 0 X 10*3/uL (0.04-0.35) L 10/30/21 06:19 Basophils # 0.01 X 10*3/uL (0.00-0.10) 10/30/21 06:19 NRBC/100 WBC Diff 0 /100 WBCS (0.0-0.0) 10/30/21 06:19 Sodium 140 mmol/L (135-145) 10/30/21 06:19 Potassium 4.4 mmol/L (3.5-5.5) 10/30/21 06:19 Chloride 106 mmol/L (96-109) 10/30/21 06:19 Carbon Dioxide 23.0 mmol/L (20.0-27.5) 10/30/21 06:19 Anion Gap 11.00 mmol/L (10.00-18.00) 10/30/21 06:19 BUN 9.1 mg/dL (9.0-27.0) 10/30/21 06:19 Creatinine 0.8 mg/dL (0.6-1.5) 10/30/21 06:19 Est GFR (CKD-EPI)AfAm 131.3 (60.0-200.0) 10/30/21 06:19 Est GFR (CKD-EPI)NonAf 113.3 (60.0-200.0) 10/30/21 06:19 BUN/Creatinine Ratio 11.38 Ratio (12.00-20.00) L 10/30/21 06:19 Glucose 136 mg/dL (70-110) H 10/30/21 06:19 Calcium 9.1 mg/dL (8.7-10.3) 10/30/21 06:19 Total Bilirubin 1.0 mg/dL (0.2-1.3) 10/29/21 09:31 AST 28 U/L (17-59) 10/29/21 09:31 ALT 35 U/L (4-49) 10/29/21 09:31 Alkaline Phosphatase 67 U/L (38-126) 10/29/21 09:31 Total Protein 6.7 g/dL (6.3-8.2) 10/29/21 09:31 Albumin 4.2 g/dL (3.5-5.0) 10/29/21 09:31 Thrombosis Risk Factor Assmnt - Choose All That Apply Any of the Below Risk Factors Present?: Yes Each Factor Represents 1 point: Obesity (BMI >25) Thrombosis Risk Factor Assessment Total Risk Factor Score: 1 Thrombosis Risk Factor Assessment Level: Low Risk
--- NOTE | 2021-10-31 22:29 | CONS ---
CONSULTATION DATE OF CONSULTATION: 10/30/2021 REASON FOR CONSULTATION: Angioedema of the face, lips, uvula, etc. HISTORY OF PRESENT ILLNESS: The patient is a very pleasant 36-year-old male who presented to [facility] Emergency Room with complaints of facial swelling and swelling of his uvula. The patient has a history of having episodes of angioedema which have occurred approximately 3 times in the past. His latest episode occurred approximately 4 days prior to admission and he was seen in the emergency room. At that time, he was given steroids and was sent home with an EpiPen. He states that on the day before his admission he developed tingling of his lips/face and administered an EpiPen to himself. He subsequently called 911 and was brought to [facility] Emergency Room. At that time, it was noted that he was experiencing an episode of angioedema and there was significant swelling in the oropharynx, especially of the soft palate and uvula. The patient was admitted for observation and for further steroid treatment. The patient is in no acute distress or respiratory distress at this time. It is felt that this recent episode was initiated by a one of his home medications, namely lisinopril (an VINCENT inhibitor). That medication was stopped and the patient was subsequently placed on Norvasc. PAST MEDICAL HISTORY: Past medical history reveals patient has: ALLERGIES: TO VINCENT INHIBITORS, AND SOAP. MEDICATIONS: His home medications include Prilosec, prednisone, and Norvasc. REVIEW OF SYSTEMS: Reveals that the cardiovascular system is positive for hypertension. The gastrointestinal system is positive for GERD (gastroesophageal reflux disorder). The remainder of the review the remainder of the review of systems is unremarkable. PHYSICAL EXAM: HEENT: Patient is normocephalic. Tympanic membranes are normal. Middle ear spaces are free of any fluid or infection. Pupils equal, round, react to light and accommodation. Extraocular movements are within normal limits. Intranasal examination reveals moderate septal deviation with compensatory hypertrophy of inferior turbinates. Examination of the facial skin and lips is negative for any significant swelling or edema. Examination of the oropharynx reveals no significant swelling of the tongue, but there is still mild edema/swelling of the soft palate and of the uvula. The patient has no somatic complaints with regard to the uvula touching the back of his tongue at this time. He is also not in any acute respiratory distress or having any choking episodes. Palpation of the neck, cranial nerves 2 through 12 and remainder of the head and neck exam are within normal limits. CHEST/CARDIOVASCULAR: Both lung delvalle are clear to percussion and auscultation. The patient is in regular sinus rhythm. S1, S2 are present without any murmurs, S3s or S4s. Peripheral pulses are bilaterally symmetrical. ABDOMEN: There is no evidence any masses megaly or tenderness. Abdomen: Soft. SKIN is unremarkable. MUSCULOSKELETAL, NEUROLOGICAL and remainder of the physical exam is essentially unremarkable. IMPRESSION: Angioedema, with significant swelling of the soft/soft palate and uvula (uvulitis). This issue has just about completely resolved. PLAN: From an ENT standpoint, this patient can be discharged to home on a 10 day course of the steroid of your choice. I will not need to see this patient for followup in my office, but I have advised him to keep his appointment with Dr. Wilkins and also with his family physician. He should always have an EpiPen and a prescription for some type of steroid to keep on hand at home. I want to take this opportunity to thank you for allowing me to assist in the care of your patient. If I could be of any further assistance, please feel free to call my office. MMODL / IJN: [id number] / ELODIA
== END 2021-10-30 15:30 | disposition home or self-care (01) ==
LOC: EC 09:16 → 6NMEDSUR 11:47
PROVIDERS: ADMIT Family Medicine; ATTEND Family Medicine
DX: T78.3XXA Angioneurotic edema, initial encounter (principal); I10 Essential (primary) hypertension; K21.9 Gastro-esophageal reflux disease without esophagitis; R10.9 Unspecified abdominal pain; E66.9 Obesity, unspecified; Z68.29 Body mass index [BMI] 29.0-29.9, adult; F41.9 Anxiety disorder, unspecified; Z79.899 Other long term (current) drug therapy; Z88.8 Allergy status to other drugs, medicaments and biological substances; Z91.048 Other nonmedicinal substance allergy status; Z71.3 Dietary counseling and surveillance; Z87.891 Personal history of nicotine dependence; Z90.49 Acquired absence of other specified parts of digestive tract; Z80.42 Family history of malignant neoplasm of prostate; Z82.49 Family history of ischemic heart disease and other diseases of the circulatory system
CPT/HCPCS: 99285; 96376 ×2; 96365; 96375; 36415; 93005; 80053; 80048; 85025 ×2; G0378 ×2; J1200 ×2; J2930 ×2

== ENCOUNTER → 2021-11-18 | Outpatient (CLI) | payer OTHER | END | disposition home or self-care (01) | LOC: LABWHC1 09:37 | PROVIDERS: ATTEND Allergy & Immunology | DX: T78.3XXA Angioneurotic edema, initial encounter (principal) | CPT/HCPCS: 36415; 86161 ==

== ENCOUNTER 2021-11-25 20:49 | Emergency (ER) | payer OTHER ==
[2021-11-25 21:53] VITALS: PULSE 66; TEMP 98.3
--- NOTE | 2021-11-25 23:37 | ED ---
Allergic Reaction HPI - General Chief complaint: Allergic Reaction Stated complaint: allergic reaction Time Seen by Provider: 11/25/21 23:05 Source: patient, RN notes reviewed Mode of arrival: ambulatory Limitations: no limitations - History of Present Illness Initial Comments: This is a pleasant 36-year-old male who presents emergency Department with swelling to his upper lip and to a lesser Sten his tongue. Patient has been dealing with angioedema for about the last 2 months. Patient has been seeing an product assurance engineer, Dr. Wilkins. Patient states he started getting swelling in the day. Patient states that the product assurance engineer initially thought this was due to lisinopril. However the patient has been off of that since September. Up taking amlodipine for blood pressure. Patient denies any shortness of breath. He denies any chest pain. No skin rashes or lesions. The edema affects his upper lip and to a lesser extent his tongue. He denies any airway problems. No swollen throat. Patient states that he at times has had some discomfort in the throat. Respiratory prior to arrival. Patient also took 40 mg of prednisone. Patient states that he never has had any significant respiratory distress with a 5 times she has had the angioedema in the past. No headache, no fever or chills, no changes in vision or hearing, no sore throat or difficulty with speech, no neck pain, no chest pain or shortness of breath, no abdominal pain, no nausea or vomiting, no changes in urination or bowel movements, no numbness or tingling, no extremity pain, no skin rashes or lesions. - Related Data Home Medications Medication Instructions Recorded Confirmed Ascorbic Acid [Vitamin C] 500 mg PO DAILY 07/02/20 10/29/21 Dicyclomine [Bentyl] 10 mg PO QID PRN 10/29/21 10/29/21 EPINEPHrine (Auto Inject) [Epipen] 0.3 mg IM ONCE PRN 10/29/21 10/29/21 Omeprazole 20 mg PO BID 10/29/21 10/29/21 amLODIPine [Norvasc] 2.5 mg PO DAILY 10/29/21 10/29/21 predniSONE 30 mg PO ONCE PRN 10/29/21 10/29/21 Previous Rx's Medication Instructions Recorded predniSONE [Deltasone] 40 mg PO DAILY #15 tab 10/30/21 Famotidine [Pepcid] 20 mg PO BID #15 tablet 11/26/21 diphenhydrAMINE [Benadryl] 25 mg PO QID PRN #24 capsule 11/26/21 predniSONE 50 mg PO DAILY #5 tab 11/26/21 Allergies Allergy/AdvReac Type Severity Reaction Status Date / Time VINCENT Inhibitors AdvReac Anaphylaxis Verified 11/25/21 21:51 soap AdvReac Rash/Hives Verified 11/25/21 21:51 Review of Systems ROS Statement: Those systems with pertinent positive or pertinent negative responses have been documented in the HPI. ROS Other: All systems not noted in ROS Statement are negative. Past Medical History Past Medical History: Hypertension History of Any Multi-Drug Resistant Organisms: None Reported Past Surgical History: Cholecystectomy Additional Past Surgical History / Comment(s): Sinus Past Anesthesia/Blood Transfusion Reactions: No Reported Reaction Past Psychological History: Anxiety Smoking Status: Former smoker Past Alcohol Use History: Daily Past Drug Use History: None Reported - Past Family History Father Family Medical History: Hypertension Additional Family Medical History / Comment(s): PROSTATE CA Mother Family Medical History: No Reported History General Exam - General Exam Comments Initial Comments: Patient in no significant distress at the time I enter the room. Limitations: no limitations General appearance: alert, in no apparent distress Head exam: Present: atraumatic, normocephalic, normal inspection Eye exam: Present: normal appearance, PERRL, EOMI. Absent: scleral icterus, conjunctival injection, periorbital swelling ENT exam: Present: normal exam, mucous membranes moist, normal external ear exam, other (There is no stridor. Patient does have some mild edema to the upper lip. No evidence of tongue edema or airway compromise.). Absent: mucous membranes dry Expanded Ear exam: Present: normal external inspection. Absent: auricular hematoma, auricular trauma Mouth exam: Present: tongue normal. Absent: normal external inspection, muffled voice, tongue elevation Throat exam: normal inspection. negative: tonsillar erythema, tonsillomegaly, tonsillar exudate, R peritonsillar mass, L peritonsillar mass Neck exam: Present: normal inspection. Absent: tenderness, meningismus, lymphadenopathy Respiratory exam: Present: normal lung sounds bilaterally. Absent: respiratory distress, wheezes, rales, rhonchi, stridor Cardiovascular Exam: Present: regular rate, normal rhythm, normal heart sounds. Absent: systolic murmur, diastolic murmur, rubs, gallop, clicks GI/Abdominal exam: Present: soft, normal bowel sounds. Absent: distended, tenderness, guarding, rebound, rigid Extremities exam: Present: normal inspection, full ROM, normal capillary refill. Absent: tenderness, pedal edema, joint swelling, calf tenderness Back exam: Present: normal inspection Neurological exam: Present: alert, oriented X3, CN II-XII intact Psychiatric exam: Present: normal affect, normal mood Skin exam: Present: warm, dry, intact, normal color. Absent: rash Course Vital Signs 11/25/21 11/25/21 21:51 23:53 Temperature 98.3 F Pulse Rate 66 66 Respiratory 20 16 Rate Blood Pressure 128/82 134/92 O2 Sat by Pulse 97 99 Oximetry - Reevaluation(s) Reevaluation #1: 11/26/21 00:56 Medical record is reviewed Symptoms are improved here in the emergency department--patient actually feeling better. Repeat examination reveals improvement. Patient in no respiratory distress. No airway problems. Patient is informed of results and questions answered Patient in no distress Medical Decision Making - Medical Decision Making Patient presents with recurrent angioedema. No respiratory distress. Patient was given epinephrine 0.3 mg IM, Solu-Medrol 125 mg IM, Pepcid 20 mg by mouth. Patient reevaluated and states his symptoms are improving. Patient states this is happened about 5 times over the last 2 months. Patient stopped lisinopril September. Patient has been treated and evaluated by Dr. Wilkins. We will have him call her in the morning. Patient no distress at discharge. The case was discussed in detail with ED attending physician. Presentation, findings, treatment plan discussed in detail. Patient was told to return to the ER for any signs or symptoms worsen. Told to return immediately if any other problems arise. All questions answered. Treatment plan discussed. Patient in agreement Every effort has been made to ensure accuracy of this dictation. However, due to the limitations of electronic medical records and dictation devices, errors in charting still occur. I did order prednisone 50 mg daily for 5 days, diphenhydramine, and Pepcid as an outpatient. Disposition Clinical Impression: Angioedema Disposition: HOME SELF-CARE Condition: Stable Instructions (If sedation given, give patient instructions): Angioedema (ED) Additional Instructions: Follow-up with your regular physician as directed. Return to the ER immediately if any symptoms worsen, new symptoms arise, or any other problems develop. Call Dr. Wilkins in the morning for further treatment plan. Prescriptions: diphenhydrAMINE [Benadryl] 25 mg PO QID PRN #24 capsule PRN Reason: Itching Famotidine [Pepcid] 20 mg PO BID #15 tablet predniSONE 50 mg PO DAILY #5 tab Is patient prescribed a controlled substance at d/c from ED?: No Referrals: Jac Mejía MD [Primary Care Provider] - 1-2 days Ana Paula Wilkins MD [STAFF PHYSICIAN] - 1-2 days Time of Disposition: 01:01
[2021-11-26] MEDS ORDERED: FAMOTIDINE 20 MG TAB PO STA (00:22)
[2021-11-26] MEDS ORDERED: methylPREDNISolone SOD SUCCI 125 MG/2 ML VIAL IM STA (00:22)
[2021-11-26 00:43] VITALS: BP 134/92; RESP 16
== END 2021-11-26 01:25 | disposition home or self-care (01) ==
LOC: EC 20:49
DX: T78.3XXA Angioneurotic edema, initial encounter (principal); I10 Essential (primary) hypertension; F41.9 Anxiety disorder, unspecified; Z87.891 Personal history of nicotine dependence; Z79.52 Long term (current) use of systemic steroids; Z79.899 Other long term (current) drug therapy
CPT/HCPCS: 99283; 96372 ×2; J0171; J2930

== ENCOUNTER 2021-11-30 12:47 | Emergency (ER) | payer OTHER ==
[2021-11-30 12:52] VITALS: BP 167/97; PULSE 77; RESP 20; TEMP 97.6
[2021-11-30] MEDS ORDERED: FAMOTIDINE 20 MG/2 ML VIAL IV STA (12:55)
[2021-11-30] MEDS ORDERED: diphenhydrAMINE 50 MG/ML 1 ML VIAL IVP STA (12:55)
[2021-11-30] MEDS ORDERED: methylPREDNISolone SOD SUCCI 125 MG/2 ML VIAL IV STA (12:56)
--- NOTE | 2021-11-30 13:31 | ED ---
Allergic Reaction HPI - General Chief complaint: Allergic Reaction Stated complaint: allergic reaction Time Seen by Provider: 11/30/21 12:55 Source: patient, RN notes reviewed Mode of arrival: ambulatory Limitations: no limitations - History of Present Illness Initial Comments: 36-year-old male presents to emergency Department with chief complaint of ALL ERGIC reaction. Patient has been followed by Dr. 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 Patient recurrent episode a few days prior he has responded to IM epi and Benadryl today. Patient states he is feels slightly like her throat became very concerned and presented. I did receive a call from Dr. Wilkins requested C1 and C4 labs to rule out hereditary angioedema she also requested that there is some imaging of his neck given there was a lump by his hyoid bone - Related Data Home Medications Medication Instructions Recorded Confirmed Ascorbic Acid [Vitamin C] 500 mg PO DAILY 07/02/20 11/30/21 Dicyclomine [Bentyl] 10 mg PO QID PRN 10/29/21 11/30/21 EPINEPHrine (Auto Inject) [Epipen] 0.3 mg IM ONCE PRN 10/29/21 11/30/21 amLODIPine [Norvasc] 2.5 mg PO DAILY 10/29/21 11/30/21 Clobetasol Propionate [Temovate 1 applic TOPICAL BID PRN 11/30/21 11/30/21 0.05% Cream] Famotidine [Pepcid] 40 mg PO HS 11/30/21 11/30/21 Fluticasone Nasal [place] [Flonase 2 spray EA NOSTRIL DAILY 11/30/21 11/30/21 Nasal [place]] Loratadine [Claritin] 10 mg PO DAILY 11/30/21 11/30/21 Montelukast [Singulair] 10 mg PO DAILY 11/30/21 11/30/21 Omeprazole [PriLOSEC] 40 mg PO DAILY 11/30/21 11/30/21 Previous Rx's Medication Instructions Recorded diphenhydrAMINE [Benadryl] 25 mg PO QID PRN #24 capsule 11/26/21 predniSONE 50 mg PO DAILY #5 tab 11/26/21 EPINEPHrine (Auto Inject) [Epipen] 0.3 mg IM ONCE PRN #1 pack 11/30/21 predniSONE [Deltasone] 40 mg PO DAILY #14 tab 11/30/21 Allergies Allergy/AdvReac Type Severity Reaction Status Date / Time lisinopril Allergy Anaphylaxis Verified 11/30/21 14:01 VINCENT Inhibitors AdvReac Anaphylaxis Verified 11/30/21 14:01 tide laundry soap Allergy Rash/Hives Uncoded 11/30/21 14:01 Review of Systems ROS Statement: Those systems with pertinent positive or pertinent negative responses have been documented in the HPI. ROS Other: All systems not noted in ROS Statement are negative. Past Medical History Past Medical History: Hypertension History of Any Multi-Drug Resistant Organisms: None Reported Past Surgical History: Cholecystectomy Additional Past Surgical History / Comment(s): Sinus, hemherroid Past Anesthesia/Blood Transfusion Reactions: No Reported Reaction Past Psychological History: Anxiety Smoking Status: Former smoker Past Alcohol Use History: Daily Past Drug Use History: None Reported - Past Family History Father Family Medical History: Hypertension Additional Family Medical History / Comment(s): PROSTATE CA Mother Family Medical History: No Reported History General Exam Limitations: no limitations General appearance: alert, in no apparent distress Head exam: Present: atraumatic, normocephalic, normal inspection Eye exam: Present: normal appearance, PERRL, EOMI. Absent: scleral icterus, conjunctival injection, periorbital swelling ENT exam: Present: normal exam, normal oropharynx, mucous membranes moist Neck exam: Present: normal inspection, full ROM. Absent: tenderness, meningismus, lymphadenopathy Respiratory exam: Present: normal lung sounds bilaterally. Absent: respiratory distress, wheezes, rales, rhonchi, stridor Cardiovascular Exam: Present: regular rate, normal rhythm, normal heart sounds. Absent: systolic murmur, diastolic murmur, rubs, gallop, clicks Neurological exam: Present: alert, oriented X3, CN II-XII intact Skin exam: Present: warm, dry, intact, normal color. Absent: rash Course Vital Signs 11/30/21 12:48 Temperature 97.6 F Pulse Rate 77 Respiratory 20 Rate Blood Pressure 167/97 O2 Sat by Pulse 98 Oximetry Medical Decision Making - Medical Decision Making 28-year-old presented for ALLERGIC reaction type symptoms I did discuss the case with his asset administrator who recommended C4 and C1 testing which was completed pending results CT was obtained of the neck as requested with no specific findings. Patient feels asymptomatic. Patient will be discharged with follow- up return parameters discussed. Disposition Clinical Impression: Allergic reaction Disposition: HOME SELF-CARE Condition: Stable Instructions (If sedation given, give patient instructions): Anaphylaxis (ED) Additional Instructions: Please return to the Emergency Department if symptoms worsen or any other concerns. Prescriptions: predniSONE [Deltasone] 40 mg PO DAILY #14 tab EPINEPHrine (Auto Inject) [Epipen] 0.3 mg IM ONCE PRN #1 pack PRN Reason: Anaphylaxis Is patient prescribed a controlled substance at d/c from ED?: No Referrals: Jac Mejía MD [Primary Care Provider] - 1-2 days Ana Paula Wilkins MD [STAFF PHYSICIAN] - 1-2 days Time of Disposition: 14:15
--- NOTE | 2021-11-30 13:55 | CT ---
EXAMINATION TYPE: CT soft tissue neck w con DATE OF EXAM: 11/30/2021 1:37 PM COMPARISON: None available HISTORY: Swelling, difficulty swallowing, possible cyst. CT DLP: 343.9 mGycm Automated exposure control for dose reduction was used. CONTRAST: CT scan of the neck is performed following with IV Contrast, patient injected with 100 mL of Isovue 3 00. Axial images are obtained, coronal and sagittal reformatted images are reviewed. FINDINGS: Slightly prominent palatine tonsils without definite measurable lesion or cyst. Tiny palatine tonsils calcifications. Otherwise unremarkable nasopharynx, oropharynx, hypopharynx, larynx and visualized p ortion of the trachea and esophagus. Unremarkable thyroid gland. Symmetrical unremarkable parotid and submandibular salivary glands. Superficial soft tissue nodule is seen in the right side of the neck measuring 10 mm, just inferior t o the right external auditory canal and inseparable from the superficial portion of the right parotid gland, please correlate clinically. Patent major neck vessels. Scattered subcentimeter bilateral cervical, submental and submandibular ly mph nodes, nonspecific. No pathologically enlarged lymph nodes in the neck. No aggressive bone lesion . IMPRESSION: Slightly prominent palatine tonsils as described above, nonspecific, please correlate clinically. Right neck superficial soft tissue nodule as described above, please correlate clinically. Other inci dental findings as described above.
== END 2021-11-30 14:25 | disposition home or self-care (01) ==
LOC: EC 12:47
DX: T78.40XA Allergy, unspecified, initial encounter (principal); I10 Essential (primary) hypertension; F41.9 Anxiety disorder, unspecified; Z87.891 Personal history of nicotine dependence; Z79.899 Other long term (current) drug therapy
CPT/HCPCS: 86160; 36415; 70491; 99284; Q9967

== ENCOUNTER 2022-02-13 06:50 | Emergency (ER) | payer OTHER ==
[2022-02-13 07:00] VITALS: TEMP 97.4
[2022-02-13] MEDS ORDERED: SODIUM CHLORIDE 0.9% 1,000 ML IV STA (07:02)
[2022-02-13] MEDS ORDERED: ONDANSETRON 4 MG/2 ML VIAL IVP STA (07:03)
--- NOTE | 2022-02-13 07:40 | ED ---
General Adult HPI - General Chief complaint: Abdominal Pain Stated complaint: Abdominal pain Time Seen by Provider: 02/13/22 07:02 Source: patient Mode of arrival: ambulatory - History of Present Illness Initial comments: Dictation was produced using [employer] dictation software. please excuse any grammatical, word or spelling errors. Chief Complaint: 36-year-old male presents to the emergency department for epigastric abdominal pain History of Present Illness: A 36-year-old male who presents to the emergency department for epigastric abdominal pain. Patient was at a wedding last night for a family friend. They got home feeling well. He states he did not have more alcohol than usual. Patient states that the pain is in his epigastric area. He states his colicky nature started around 6 AM. States that the pain woke him up out of bed. Patient had one episode of vomiting that was nonbilious not bloody. Patient denies any symptoms of substernal. Nonradiating to the extremities or jaw. He does however have family history of coronary artery dis ease. Patient has any fever or constitutional symptoms. He has history of cholecystectomy. Patient states that these episodes of symptoms, and weight. Denies any burning sensation in his chest or the sensation of tasting pennies in the back of his throat. The ROS documented in this emergency department record has been reviewed and confirmed by me. Those systems with pertinent positive or negative responses have been documented in the HPI. All other systems are other negative and/or noncontributory. PHYSICAL EXAM: General Impression: Alert and oriented x3, not in acute distress HEENT: Normocephalic atraumatic, extra-ocular movements intact, pupils equal and reactive to light bilaterally, mucous membranes moist. Cardiovascular: Heart regular rate and rhythm Chest: Able to complete full sentences, no retractions, no tachypnea Abdomen: abdomen soft, non-tender, non-distended, no organomegaly Musculoskeletal: Pulses present and equal in all extremities, no peripheral edema Motor: no focal deficits noted Neurological: CN II-XII grossly intact, no focal motor or sensory deficits noted Skin: Intact with no visualized rashes Psych: Normal affect and mood ED course: 36-year-old male presents to the emergency department for colicky epigastric abdominal pain. Vital signs upon arrival are within acceptable limits. Patient's well-appearing at the bedside. Laboratory evaluation obtained. CBC is unremarkable. Metabolic panel is negative. Abdominal labs shows elevated liver enzymes. Troponin is negative. Patient observed in the emergency department for approximately 2 hours and 30 minutes. Patient given GI cocktail. He is reevaluated bedside at 9:20 AM found to be stable medical condition. He states that his symptoms are almost all gone. His at the bedside reports that she had GI symptoms recently. Patient believes that his symptoms are from a enteritis. Nonetheless patient be discharged. Patient feels well and is agreeable. Return precautions discussed. EKG interpretation: Ventricular rate 63, sinus rhythm,. 183, QS 105, QTc 445. No [place] prolongation, no QTC prolongation, no ST or T-wave changes noted. Overall, this EKG is unremarkable - Related Data Home Medications Medication Instructions Recorded Confirmed Ascorbic Acid [Vitamin C] 500 mg PO DAILY 07/02/20 11/30/21 Dicyclomine [Bentyl] 10 mg PO QID PRN 10/29/21 11/30/21 EPINEPHrine (Auto Inject) [Epipen] 0.3 mg IM ONCE PRN 10/29/21 11/30/21 amLODIPine [Norvasc] 2.5 mg PO DAILY 10/29/21 11/30/21 Clobetasol Propionate [Temovate 1 applic TOPICAL BID PRN 11/30/21 11/30/21 0.05% Cream] Famotidine [Pepcid] 40 mg PO HS 11/30/21 11/30/21 Fluticasone Nasal [place] [Flonase 2 spray EA NOSTRIL DAILY 11/30/21 11/30/21 Nasal [place]] Loratadine [Claritin] 10 mg PO DAILY 11/30/21 11/30/21 Montelukast [Singulair] 10 mg PO DAILY 11/30/21 11/30/21 Omeprazole [PriLOSEC] 40 mg PO DAILY 11/30/21 11/30/21 Previous Rx's Medication Instructions Recorded diphenhydrAMINE [Benadryl] 25 mg PO QID PRN #24 capsule 11/26/21 predniSONE 50 mg PO DAILY #5 tab 11/26/21 EPINEPHrine (Auto Inject) [Epipen] 0.3 mg IM ONCE PRN #1 pack 11/30/21 predniSONE [Deltasone] 40 mg PO DAILY #14 tab 11/30/21 Allergies Allergy/AdvReac Type Severity Reaction Status Date / Time lisinopril Allergy Anaphylaxis Verified 02/13/22 07:00 VINCENT Inhibitors AdvReac Anaphylaxis Verified 02/13/22 07:00 tide laundry soap Allergy Rash/Hives Uncoded 02/13/22 07:00 Review of Systems ROS Statement: Those systems with pertinent positive or pertinent negative responses have been documented in the HPI. ROS Other: All systems not noted in ROS Statement are negative. Past Medical History Past Medical History: Hypertension History of Any Multi-Drug Resistant Organisms: None Reported Past Surgical History: Cholecystectomy Additional Past Surgical History / Comment(s): Sinus, hemherroid Past Anesthesia/Blood Transfusion Reactions: No Reported Reaction Past Psychological History: Anxiety Smoking Status: Former smoker Past Alcohol Use History: Daily Past Drug Use History: None Reported - Past Family History Father Family Medical History: Hypertension Additional Family Medical History / Comment(s): PROSTATE CA Mother Family Medical History: No Reported History Course Vital Signs 02/13/22 02/13/22 06:56 09:00 Temperature 97.4 F L Pulse Rate 88 77 Respiratory 19 18 Rate Blood Pressure 131/87 140/90 O2 Sat by Pulse 98 97 Oximetry Medical Decision Making - Lab Data Result diagrams: 02/13/22 07:18 02/13/22 07:18 Lab Results 02/13/22 02/13/22 02/13/22 Range/Units 07:18 07:18 08:06 WBC 6.7 (3.8-10.6) k/uL RBC 5.00 (4.30-5.90) m/uL Hgb 15.7 (13.0-17.5) gm/dL Hct 46.1 (39.0-53.0) % MCV 92.1 (80.0-100.0) fL MCH 31.4 (25.0-35.0) pg MCHC 34.1 (31.0-37.0) g/dL RDW 13.4 (11.5-15.5) % Plt Count 144 L (150-450) k/uL MPV 10.8 Neutrophils % 50 % Lymphocytes % 37 % Monocytes % 5 % Eosinophils % 5 % Basophils % 1 % Neutrophils # 3.3 (1.3-7.7) k/uL Lymphocytes # 2.5 (1.0-4.8) k/uL Monocytes # 0.3 (0-1.0) k/uL Eosinophils # 0.3 (0-0.7) k/uL Basophils # 0.1 (0-0.2) k/uL Sodium 142 (137-145) mmol/L Potassium 4.0 (3.5-5.1) mmol/L Chloride 108 H (98-107) mmol/L Carbon Dioxide 23 (22-30) mmol/L Anion Gap 11 mmol/L BUN 10 (9-20) mg/dL Creatinine 0.68 (0.66-1.25) mg/dL Est GFR (CKD-EPI)AfAm >90 (>60 ml/min/1.73 sqM) Est GFR (CKD-EPI)NonAf >90 (>60 ml/min/1.73 sqM) Glucose 97 (74-99) mg/dL Calcium 8.4 (8.4-10.2) mg/dL Total Bilirubin 0.3 (0.2-1.3) mg/dL AST 209 H (17-59) U/L ALT 75 H (4-49) U/L Alkaline Phosphatase 80 (38-126) U/L Troponin I <0.012 (0.000-0.034) ng/mL Total Protein 6.8 (6.3-8.2) g/dL Albumin 4.6 (3.5-5.0) g/dL Lipase 85 (23-300) U/L Disposition Clinical Impression: Epigastric pain Disposition: HOME SELF-CARE Condition: Good Instructions (If sedation given, give patient instructions): Abdominal Pain (ED) Is patient prescribed a controlled substance at d/c from ED?: No Referrals: Jac Mejía MD [Primary Care Provider] - 1-2 days Time of Disposition: 09:19
[2022-02-13 07:41] LABS: ALT 75 U/L (4-49); AST 209 U/L (17-59); African American GFR (CKD) >90 (>60 ml/min/1.73 sqM); Albumin 4.6 g/dL (3.5-5.0); Alkaline Phosphatase 80 U/L (38-126); Anion Gap 11 mmol/L; Blood Urea Nitrogen 10 mg/dL (9-20); Calcium 8.4 mg/dL (8.4-10.2); Carbon Dioxide 23 mmol/L (22-30); Chloride 108 mmol/L (98-107); Glucose 97 mg/dL (74-99); Lipase 85 U/L (23-300); Non-African American GFR(CKD) >90 (>60 ml/min/1.73 sqM); Sodium 142 mmol/L (137-145); Total Bilirubin 0.3 mg/dL (0.2-1.3); Total Protein 6.8 g/dL (6.3-8.2)
[2022-02-13 08:10] LABS: Basophils # (A) 0.1 k/uL (0-0.2); Basophils % (A) 1 %; Eosinophils # (A) 0.3 k/uL (0-0.7); Eosinophils % (A) 5 %; HCT 46.1 % (39.0-53.0); HGB 15.7 gm/dL (13.0-17.5); Lymphocytes # (A) 2.5 k/uL (1.0-4.8); Lymphocytes % (A) 37 %; MCH 31.4 pg (25.0-35.0); MCHC 34.1 g/dL (31.0-37.0); MCV 92.1 fL (80.0-100.0); Mean Platelet Volume 10.8; Monocytes # (A) 0.3 k/uL (0-1.0); Monocytes % (A) 5 %; Neutrophils # (A) 3.3 k/uL (1.3-7.7); Neutrophils % (A) 50 %; Platelet Count 144 k/uL (150-450); RDW 13.4 % (11.5-15.5); WBC 6.7 k/uL (3.8-10.6)
[2022-02-13] MEDS ORDERED: MAG HYDROX/AL HYDROX/SIMETH 30 ML, HYOSCYAMINE ELIXIR 10 ML, LIDOCAINE VISCOUS 2% 10 ML PO STA ×3 (08:40)
[2022-02-13 09:03] VITALS: BP 140/90; PULSE 77; RESP 18
== END 2022-02-13 09:24 | disposition home or self-care (01) ==
LOC: EC 06:50
DX: R10.13 Epigastric pain (principal); I10 Essential (primary) hypertension; Z87.891 Personal history of nicotine dependence; Z91.048 Other nonmedicinal substance allergy status; Z88.8 Allergy status to other drugs, medicaments and biological substances
CPT/HCPCS: 36415; 93005; 80053; 83690; 84484; 85025; 99284; 96361; 96374; J2405